=== PATIENT | male | born 1985 | race African-American/Black ===

== ENCOUNTER 2018-01-30 11:17 | Emergency (ER) | payer BC, OTHER ==
[~2018-01-30] VITALS: Ht 185.4 cm; Wt 120.2 kg
[2018-01-30 11:28] VITALS: BP 132/91
[2018-01-30] MEDS ORDERED: KETOROLAC TROMETH 60MG/2ML VIAL IM ONE (12:30)
== END 2018-01-30 12:48 | disposition home or self-care (01) ==
LOC: ER 11:17
DX: G44.209 Tension-type headache, unspecified, not intractable (principal); Z87.891 Personal history of nicotine dependence
CPT/HCPCS: 70450; 96372; 99284; J1885

== ENCOUNTER 2023-07-16 11:51 | Emergency (ER) | payer BC, OTHER ==
[~2023-07-16] VITALS: Ht 182.9 cm; Wt 135.0 kg
[2023-07-16 15:28] VITALS: BP 132/78; PULSE 92; RESP 16; TEMP 99.1
[2023-07-16 16:01] VITALS: O2SAT 96
[2023-07-16] MEDS ORDERED: ACYC5CRE4 TOP (16:21)
[2023-07-16] MEDS ORDERED: VALA1TAB PO (16:21)
== END 2023-07-16 16:43 | disposition home or self-care (01) ==
LOC: ER 11:51
DX: B02.9 Zoster without complications (principal); Z88.2 Allergy status to sulfonamides; Z79.899 Other long term (current) drug therapy